=== PATIENT | female | born 1960 | race American Indian/Alaskan Native ===

== ENCOUNTER 2018-11-30 10:28 | Day surgery (SDC) | payer OTHER ==
[~2018-11-30 10:28] MED LIST: NACL 0.9% 1000 ML 1,000 ML IV SCH
--- NOTE | 2018-11-30 11:33 | Anesthesia Day of Surgery ---
Anesthesia Day of Surgery - Day of Surgery Patient Examined: Yes Patient H&P Reviewed: Yes Patient is NPO: Yes
--- NOTE | 2018-11-30 11:33 | Anesthesia Consultation ---
Anesthesia Consult and Med Hx Date of service: 11/30/18 - Airway Anesthetic Teeth Evaluation: Good (some missing teeth) ROM Head & Neck: Adequate Mental/Hyoid Distance: Adequate Mallampati Class: Class II Intubation Access Assessment: Probably Good - Pre-Operative Health Status ASA Pre-Surgery Classification: ASA2 Proposed Anesthetic Plan: MAC - Pulmonary Hx Asthma: Yes (uses inhaler as needed) - Cardiovascular System Hx Hypertension: Yes Hx Cardia Arrhythmia: Yes
[2018-11-30] MEDS ORDERED: DIPRIVAN 10 MG/ML IV ONE ×2 (11:39)
--- NOTE | 2018-11-30 12:16 | Procedure Note ---
Date of procedure: 11/30/18 Pre-op diagnosis: H/O Colon Polyp/F/H/O Colon Cancer (brother) Post-op diagnosis: other (Solitary,Smal Cecal Polyp/Scattered,Moderate Diverticular Disease/Mild to Moderate Internal Hemorrhoid) Procedure: Colonoscopy with Biopsy Anesthesia: MAC Surgeon: RAFIQ HANEY Estimated blood loss: minimal Pathology: list Specimen disposition: to lab Condition: stable Disposition: same day (Resume home medication but avoid aspirin and NSAID for 4 days. Follow up in 1 to 2 weeks ([phone]).)
[2018-11-30] MEDS ORDERED: XYLOCAINE MPF 2% ONE (12:30)
[2018-11-30 13:16] VITALS: BP 136/75
--- NOTE | 2018-11-30 14:48 | Operative Report ---
PROCEDURE: Colonoscopy with biopsy. INDICATIONS: This is a 58-year-old -[place] female who has a prior history of colon polyp and family history of colon cancer. The patient's brother had colon cancer when he was in his 50s. Colonoscopy was done to make sure there was not any recurrence of any polyps. DESCRIPTION OF PROCEDURE: Procedure was done after getting informed consent with MAC anesthesia. Initial rectal exam was unremarkable. Instrument was passed through the rectum onto the cecum, which was identified with ileocecal valve and appendiceal orifice. The cecum was visualized in the retroverted view. No additional pathology was noted. However, on withdrawal in the distal cecum, there was a solitary cecal polyp noted that was removed by cold biopsy. The remaining part, there were a few scattered diverticula noted in the proximal colon, few in the transverse colon and additional in the left colon, some of which were deep. The rectum showed [id number] internal hemorrhoid on the retroverted view. There was minimal bleeding from the polypectomy site and no complications associated with the procedure. ASSESSMENT: History of colon polyp; family history of colon cancer, the patient's brother had colon cancer; solitary small cecal polyp removed by cold biopsy; scattered moderate diverticular disease; [id number] internal hemorrhoid. The patient will be encouraged to take fiber supplements, avoid aspirin and aspirin-related products for the next few days and resume home medication. Follow up in the office in 1-2 weeks' time. The procedure was done in the GI lab with assistance of the GI lab team, which included Dangelo Cuba and the assistance of Anesthesia. [facility]# [id number] GRISELDA/LEAH
--- NOTE | 2018-11-30 15:37 | Post Anesthesia Evaluation ---
- Post Anesthesia Evaluation Patient Participated: Yes Airway Patent: Yes Stable Respiratory Function: Yes Nausea/Vomiting: No Temp > 96.8F: Yes Pain Manageable: Yes Adequeate Hydration: Yes Anesthesia Complications: No Block Receding Appropriately: Not Applicable Patient on Ventilator: No
== END 2018-11-30 12:54 | disposition home or self-care (01) ==
LOC: GIO 10:28
DX: Z12.11 Encounter for screening for malignant neoplasm of colon (principal); D12.0 Benign neoplasm of cecum; K57.30 Diverticulosis of large intestine without perforation or abscess without bleeding; K64.8 Other hemorrhoids; I42.9 Cardiomyopathy, unspecified; I10 Essential (primary) hypertension; J45.909 Unspecified asthma, uncomplicated; Z86.010 Personal history of colon polyps; Z80.0 Family history of malignant neoplasm of digestive organs; Z88.5 Allergy status to narcotic agent; Z88.0 Allergy status to penicillin; Z79.899 Other long term (current) drug therapy; Z79.82 Long term (current) use of aspirin; Z90.49 Acquired absence of other specified parts of digestive tract; Z90.710 Acquired absence of both cervix and uterus; Z98.891 History of uterine scar from previous surgery; Z98.890 Other specified postprocedural states
CPT/HCPCS: 45380; 88305; J2704; J7030